=== PATIENT | male | born 2000 | race Hispanic/Latino ===

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

== ENCOUNTER 2022-02-27 17:56 | Emergency (ER) | payer OTHER ==
[~2022-02-27] VITALS: Ht 177.8 cm; Wt 100.0 kg
[2022-02-27] VITALS (8 sets, daily range): BP systolic 120–139; BP diastolic 79–88
[2022-02-27] MEDS ORDERED: TRAMADOL HCL50 MG PO (19:38)
[2022-02-27] MEDS ORDERED: VOLTAREN75 MG PO (19:38)
== END 2022-02-27 20:37 | disposition home or self-care (01) | DRG 563 ==
LOC: ED 17:56
DX: S42.022A Displaced fracture of shaft of left clavicle, initial encounter for closed fracture (principal); S90.411A Abrasion, right great toe, initial encounter; V58.5XXA Driver of pick-up truck or van injured in noncollision transport accident in traffic accident, initial encounter